=== PATIENT | female | born 1995 | race Hispanic/Latino ===

== ENCOUNTER 2020-01-29 | Inpatient (IN) | payer MEDICAID | END 2020-02-01 16:25 | disposition home or self-care (01) | DRG 787 | PROVIDERS: ADMIT Family Medicine | PROC: 10D00Z1 Extraction of Products of Conception, Low, Open Approach (ICD-10-PCS; principal; 2020-01-29) | PROC: 3E0P05Z Introduction of Adhesion Barrier into Female Reproductive, Open Approach (ICD-10-PCS; 2020-01-29) | PROC: 3E0234Z Introduction of Serum, Toxoid and Vaccine into Muscle, Percutaneous Approach (ICD-10-PCS; 2020-01-31) | DX: O34.211 Maternal care for low transverse scar from previous cesarean delivery (principal); O72.1 Other immediate postpartum hemorrhage; Z3A.39 39 weeks gestation of pregnancy; Z37.0 Single live birth; Z23 Encounter for immunization; O99.62 Diseases of the digestive system complicating childbirth; K66.0 Peritoneal adhesions (postprocedural) (postinfection) ==